=== PATIENT | male | born 1975 | race Hispanic/Latino ===

== ENCOUNTER 2018-05-08 20:27 | Emergency (ER) | payer BC ==
--- NOTE | 2018-05-08 21:27 | RAD REPORT ---
EXAM DESCRIPTION: Rosie [facility]ous [facility]05/08/2018 9:17 pm CLINICAL HISTORY: left leg pain COMPARISON: November 2016 FINDINGS: Left common femoral, superficial femoral, popliteal and posterior tibial veins are compre ssible and demonstrate augmentation. Doppler demonstrates good flow. IMPRESSION: No evidence of deep venous thrombosis involving the left lower extremity.
[2018-05-08 21:46] LABS: Absolute Lymphocytes (CBC) 3.1 K/uL (0.7-4.9); Absolute Monocytes 0.9 K/uL (0.1-1.3); Absolute Neutrophil 7.8 K/uL (1.8-8.0); Basophils % 0.9 % (0-1.3); Eosinophils % 2.8 % (0-4.4); Hematocrit 45.1 % (39.6-49.0); MCH 30.7 pg (27.0-35.0); MCV 90.1 fL (80-100); MPV 11.3 fL (7.6-11.3); Monocytes % 7.2 % (3.3-12.3); RBC Red Blood Cell Count 5.01 M/uL (4.33-5.43)
--- NOTE | 2018-05-08 21:51 | RAD REPORT ---
EXAM DESCRIPTION: Kiko Cochran Left05/08/2018 9:40 pm CLINICAL HISTORY: Left leg pain FINDINGS: No fracture is seen. No bony destructive lesion is noted
[2018-05-08 22:02] LABS: ALT/SGPT 28 U/L (12-78); AST/SGOT 13 U/L (15-37); Albumin 3.8 g/dL (3.4-5.0); Alkaline Phosphatase 120 U/L (45-117); BUN Blood Urea Nitrogen 9 mg/dL (7-18); Bicarbonate 30 mmol/L (21-32); Bilirubin Total 0.4 mg/dL (0.2-1.0); Glucose Level 295 mg/dL (74-106); Potassium 3.7 mmol/L (3.5-5.1); Protein, Total 7.5 g/dL (6.4-8.2); Sodium Level 136 mmol/L (136-145)
[2018-05-08] MEDS ORDERED: HYDROCODONE/APAP 10/325 TAB ONE (22:02)
[2018-05-08] MEDS ORDERED: DOXYCYCLINE 100 MG CAP PO ONE (23:47)
--- NOTE | 2018-05-08 23:49 | ER ---
Nurse's Notes [facility] Name: Juan Kee Age: 43 yrs Sex: Male : 1975 Arrival Date: 05/08/2018 Time: 20:37 Bed 5 Private MD: Diagnosis: Cellulitis of left lower limb Presentation: 05/08 20:43 Presenting complaint: Patient states: left lower leg redness, hot to touch X4 days. pt ak1 seen at urgent care Tuesday given cream and bactium. Transition of care: patient was not received from another setting of care. Onset of symptoms is unknown. Risk Assessment: Do you want to hurt yourself or someone else? Patient reports no desire to harm self or others. Initial Sepsis Screen: Does the patient meet any 2 criteria? No. Patient's initial sepsis screen is negative. Does the patient have a suspected source of infection? No. Patient's initial sepsis screen is negative. Care prior to arrival: None. 20:43 Method Of Arrival: Ambulatory ak1 20:43 Acuity: ЕКАТЕРИНА 3 ak1 Historical: - Allergies: 20:45 No Known Allergies; ak1 - Home Meds: 20:45 Benicar HCT 40-25 mg oral tab 1 tab once daily [Active]; ak1 - PMHx: 20:45 Hypertension; ak1 - PSHx: 20:45 Appendectomy; ak1 - Immunization history:: Adult Immunizations unknown. - Social history:: Smoking status: Patient uses tobacco products, smokes one-half pack cigarettes per day. - Ebola Screening: : No symptoms or risks identified at this time. Screenin:20 Abuse screen: Denies threats or abuse. Denies injuries from another. Nutritional lp1 screening: No deficits noted. Tuberculosis screening: No symptoms or risk factors identified. Fall Risk None identified. Assessment: 21:00 General: Appears in no apparent distress. Behavior is calm, cooperative, appropriate lp1 for age. Pain: Complains of pain in left flannery Pain currently is 5 out of 10 on a pain scale. Aggravated by increased activity. Neuro: Level of Consciousness is awake, alert, obeys commands. Cardiovascular: Patient's skin is warm and dry. Respiratory: Respiratory effort is even, unlabored. GI: No signs and/or symptoms were reported involving the gastrointestinal system. : No signs and/or symptoms were reported regarding the genitourinary system. EENT: No signs and/or symptoms were reported regarding the EENT system. Derm: redness, hot to touch to left flannery. Musculoskeletal: Circulation, motion, and sensation intact. 22:00 Reassessment: Patient appears in no apparent distress at this time. Patient and/or lp1 family updated on plan of care and expected duration. Pain level reassessed. Patient is alert, oriented x 3, equal unlabored respirations, skin warm/dry/pink. Patient aware of waiting for lab results. 23:00 Reassessment: Patient appears in no apparent distress at this time. No changes from lp1 previously documented assessment. Patient and/or family updated on plan of care and expected duration. Pain level reassessed. 23:48 Reassessment: Patient appears in no apparent distress at this time. No changes from lp1 previously documented assessment. Patient and/or family updated on plan of care and expected duration. Pain level reassessed. Aware of discharge. Vital Signs: 20:45 BP 163 / 107; Pulse 89; Resp 18; Temp 98.6; Pulse Ox 98% on R/A; Weight 102.06 kg (R); ak1 Height 5 ft. 11 in. (180.34 cm); Pain 5/10; 22:05 BP 140 / 92; Pulse 87; Resp 18; Pulse Ox 98% on R/A; lp1 23:30 BP 137 / 89; Pulse 70; Resp 18; Pulse Ox 98% on R/A; lp1 20:45 Body Mass Index 31.38 (102.06 kg, 180.34 cm) ak1 ED Course: 20:37 Patient arrived in ED. es 20:44 Triage completed. ak1 20:45 Arm band placed on Patient placed in an exam room, Patient notified of wait time. ak1 20:48 Jimmy Meyers NP is PHCP. pm1 20:48 Kendrick Thomas MD is Attending Physician. pm1 21:17 Extremity Venous Uni Ltd US In Process Unspecified. EDMS 21:35 Initial lab(s) drawn, by me, sent to lab. Inserted saline lock: 20 gauge in right cc forearm, using aseptic technique. Blood collected. 21:36 Tib Fib Left XRAY In Process Unspecified. EDMS 21:37 X-ray completed. Portable x-ray completed in exam room. Patient tolerated procedure sw well. 22:18 Miranda Santos, RN is Primary Nurse. lp1 22:20 Patient has correct armband on for positive identification. Bed in low position. Pulse lp1 ox on. NIBP on. 23:49 No provider procedures requiring assistance completed. IV discontinued, No lp1 redness/swelling at site. Pressure dressing applied. Administered Medications: 22:05 Drug: [place] 10 mg-325 mg 1 tabs Route: PO; lp1 23:45 Follow up: Response: Pain is decreased lp1 23:45 Drug: Doxycycline 100 mg Route: PO; lp1 05/09 00:02 Follow up: Response: Medication administered at discharge. lp1 Outcome: 05/08 23:49 Discharge ordered by . pm1 05/09 00:02 Discharged to home ambulatory, with significant other. lp1 Condition: good Discharge instructions given to patient, Instructed on discharge instructions, follow up and referral plans. medication usage, Demonstrated understanding of instructions, follow-up care, medications, Prescriptions given X 2. 00:02 Patient left the ED. lp1 Signatures: Dispatcher [employer] Catherine García Chelsea Miranda Santos, RN RN lp1 Melva Wright RN RN ak1 Yue Diane Patrick, SACHI [employer] AND G[employer] DRAFTER pm1
--- NOTE | 2018-05-08 23:49 | EDPHYS ---
Physician Documentation [facility] Name: Juan Kee Age: 43 yrs Sex: Male : 1975 Arrival Date: 05/08/2018 Time: 20:37 Bed 5 Private MD: ED Physician Kendrick Thomas HPI: 05/08 21:00 This 43 yrs old Male presents to ER via Ambulatory with complaints of LEG pm1 INFECTION. 21:00 The patient presents with cellulitis of the left flannery. Description: erythematous. pm1 Onset: The symptoms/episode began/occurred 2 day(s) ago. Possible cause(s): unknown. Associated signs and symptoms: Pertinent negatives: fever. Modifying factors: the symptoms are alleviated by nothing, the symptoms are aggravated by touching. Severity of symptoms: in the emergency department the symptoms are actually worse. The patient has not experienced similar symptoms in the past. The patient has been recently seen at an urgent care, 2 days ago and prescribed bactrim. Historical: - Allergies: 20:45 No Known Allergies; ak1 - Home Meds: 20:45 Benicar HCT 40-25 mg oral tab 1 tab once daily [Active]; ak1 - PMHx: 20:45 Hypertension; ak1 - PSHx: 20:45 Appendectomy; ak1 - Immunization history:: Adult Immunizations unknown. - Social history:: Smoking status: Patient uses tobacco products, smokes one-half pack cigarettes per day. - Ebola Screening: : No symptoms or risks identified at this time. ROS: 21:00 Constitutional: Negative for fever, chills, and weight loss, Eyes: Negative for injury, pm1 pain, redness, and discharge, ENT: Negative for injury, pain, and discharge, Neck: Negative for injury, pain, and swelling, Cardiovascular: Negative for chest pain, palpitations, and edema, Respiratory: Negative for shortness of breath, cough, wheezing, and pleuritic chest pain, Abdomen/GI: Negative for abdominal pain, nausea, vomiting, diarrhea, and constipation, Back: Negative for injury and pain, MS/Extremity: Negative for injury and deformity. 21:00 Neuro: Negative for headache, weakness, numbness, tingling, and seizure. 21:00 Skin: Positive for cellulitis, of the left flannery. Exam: 21:00 Constitutional: This is a well developed, well nourished patient who is awake, alert, pm1 and in no acute distress. Head/Face: Normocephalic, atraumatic. Neck: Trachea midline, no thyromegaly or masses palpated, and no cervical lymphadenopathy. Supple, full range of motion without nuchal rigidity, or vertebral point tenderness. No Meningismus. Chest/axilla: Normal chest wall appearance and motion. Nontender with no deformity. No lesions are appreciated. Cardiovascular: Regular rate and rhythm with a normal S1 and S2. No gallops, murmurs, or rubs. Normal PMI, no JVD. No pulse deficits. Respiratory: Lungs have equal breath sounds bilaterally, clear to auscultation and percussion. No rales, rhonchi or wheezes noted. No increased work of breathing, no retractions or nasal flaring. Abdomen/GI: Soft, non-tender, with normal bowel sounds. No distension or tympany. No guarding or rebound. No evidence of tenderness throughout. Back: No spinal tenderness. No costovertebral tenderness. Full range of motion. 21:00 MS/ Extremity: Pulses equal, no cyanosis. Neurovascular intact. Full, normal range of motion. 21:00 Skin: Appearance: normal except for affected area, cellulitis, that is mild, on the left flannery. 21:00 Neuro: Orientation: is normal, Motor: moves all fours. Vital Signs: 20:45 BP 163 / 107; Pulse 89; Resp 18; Temp 98.6; Pulse Ox 98% on R/A; Weight 102.06 kg (R); ak1 Height 5 ft. 11 in. (180.34 cm); Pain 5/10; 22:05 BP 140 / 92; Pulse 87; Resp 18; Pulse Ox 98% on R/A; lp1 23:30 BP 137 / 89; Pulse 70; Resp 18; Pulse Ox 98% on R/A; lp1 20:45 Body Mass Index 31.38 (102.06 kg, 180.34 cm) ak1 MDM: 20:50 Patient medically screened. pm1 23:48 Data reviewed: vital signs. Data interpreted: Pulse oximetry: on room air is 98 %. pm1 Interpretation: normal. Counseling: I had a detailed discussion with the patient and/or guardian regarding: the historical points, exam findings, and any diagnostic results supporting the discharge/admit diagnosis, lab results, radiology results, the need for outpatient follow up, to return to the emergency department if symptoms worsen or persist or if there are any questions or concerns that arise at home. 05/09 00:00 ED course: Bactrim only taken for 2 days. too early for antibiotic therapy failure. pm1 Will give patient doxycycline for double coverage and will continue trial outpatient therapy for cellulitis. 05/08 20:54 Order name: CBC with Diff; Complete Time: 22:06 pm1 05/08 20:54 Order name: CMP; Complete Time: 22:06 pm1 05/08 20:54 Order name: Tib Fib Left XRAY; Complete Time: 22:06 pm1 05/08 20:54 Order name: Extremity Venous Uni Ltd US; Complete Time: 22:06 pm1 05/08 20:54 Order name: Procalcitonin; Complete Time: 22:51 pm1 05/08 20:54 Order name: IV Saline Lock; Complete Time: 21:39 pm1 Administered Medications: 05/08 22:05 Drug: [place] 10 mg-325 mg 1 tabs Route: PO; lp1 23:45 Follow up: Response: Pain is decreased lp1 23:45 Drug: Doxycycline 100 mg Route: PO; lp1 05/09 00:02 Follow up: Response: Medication administered at discharge. lp1 Disposition: :18 Co-signature as Attending Physician, Kendrick Thomas MD. Disposition: 05/08/18 23:49 Discharged to Home. Impression: Cellulitis of left lower limb. - Condition is Stable. - Discharge Instructions: Cellulitis, Adult. - Prescriptions for Doxycycline Hyclate 100 mg Oral Tablet - take 1 tablet by ORAL route every 12 hours; 20 tablet. Tylenol- Codeine #3 300-30 mg Oral Tablet - take 2 tablets by ORAL route every 6 hours As needed; 20 tablet. - Work release form, Medication Reconciliation Form, Thank You Letter, Antibiotic Education, Prescription Opioid Use form. - Follow up: Emergency Department; When: As needed; Reason: Worsening of condition. Follow up: Private Physician; When: 2 - 3 days; Reason: Recheck today's complaints, Continuance of care, Re-evaluation by your physician. - Problem is new. - Symptoms have improved. Signatures: Dispatcher [facility] Miranda Carrion, RN RN lp1 Melva Wright RN RN ak1 Jimmy Meyers, HULL SORTER HULL SORTER pm1 Kendrick Thomas MD MD gs Corrections: (The following items were deleted from the chart) 00:02 05/08 23:49 05/08/2018 23:49 Discharged to Home. Impression: Cellulitis of left lower lp1 limb. Condition is Stable. Forms are Medication Reconciliation Form, Thank You Letter, Antibiotic Education, Prescription Opioid Use. Follow up: Emergency Department; When: As needed; Reason: Worsening of condition. Follow up: Private Physician; When: 2 - 3 days; Reason: Recheck today's complaints, Continuance of care, Re-evaluation by your physician. Problem is new. Symptoms have improved. pm1
[2018-05-09 00:25] VITALS: TEMP 98.6; O2SAT 98
[2018-05-09 00:27] VITALS: BP 137/89
== END 2018-05-09 00:02 | disposition home or self-care (01) ==
LOC: ER 20:27
DX: L03.116 Cellulitis of left lower limb (principal); I10 Essential (primary) hypertension; F17.210 Nicotine dependence, cigarettes, uncomplicated
CPT/HCPCS: 36415; 80053; 84145; 85025; 93971; 99284

== ENCOUNTER 2019-02-23 07:17 | Emergency (ER) | payer BC ==
--- OUTSIDE RECORDS SUMMARY | 2019-02-23 07:19 | XMS REPORT ---
:1975 [facility] Address [address] [place] [address] Dr. Cabral [address] [place] [id number] Care Team Providers Name Role Phone Unavailable Unavailable Unavailable Problems This patient has no known problems. Allergies, Adverse Reactions, Alerts This patient has no known allergies or adverse reactions. Medications This patient has no known medications.
[2019-02-23] MEDS ORDERED: hydrOXYzine HCl 25 MG TAB ONE (08:07)
[2019-02-23] MEDS ORDERED: LORAZEPAM 1 MG TABLET ONE (09:08)
--- NOTE | 2019-02-23 09:22 | ER ---
Nurse's Notes [facility] Name: Juan Kee Age: 44 yrs Sex: Male : 1975 Arrival Date: 02/23/2019 Time: 07:21 Bed 19 Private MD: Ender Sommers E Diagnosis: Acute stress reaction Presentation: 02/23 07:40 Transition of care: patient was not received from another setting of care. Onset of iw symptoms was February 23, 2019. Risk Assessment: Do you want to hurt yourself or someone else? Patient reports no desire to harm self or others. Initial Sepsis Screen: Does the patient meet any 2 criteria? No. Patient's initial sepsis screen is negative. Does the patient have a suspected source of infection? No. Patient's initial sepsis screen is negative. Care prior to arrival: None. 07:40 Method Of Arrival: Ambulatory iw 07:40 Acuity: ЕКАТЕРИНА 3 iw 07:41 Presenting complaint: Patient states: woke up with anxiety and pain shooting throughout iw his body. Historical: - Allergies: 07:40 No Known Allergies; iw - Home Meds: 07:40 Benicar HCT 40-25 mg Oral tab 1 tab once daily [Active]; iw - PMHx: 07:40 Hypertension; iw - PSHx: 07:40 Appendectomy; iw - Immunization history:: Adult Immunizations up to date. - Ebola Screening: : Patient negative for fever greater than or equal to 101.5 degrees Fahrenheit, and additional compatible Ebola Virus Disease symptoms Patient denies exposure to infectious person Patient denies travel to an Ebola-affected area in the 21 days before illness onset No symptoms or risks identified at this time. - Social history:: Smoking status: Patient/guardian denies using tobacco. Screenin:55 Abuse screen: Denies threats or abuse. Nutritional screening: No deficits noted. em Tuberculosis screening: No symptoms or risk factors identified. Fall Risk None identified. Assessment: 07:55 General: Appears in no apparent distress. comfortable, Behavior is calm, cooperative, em Denies fever. General: Reports increased anxiety over the past 2 weeks, reports high level stress at work, minimal sleep. Pain: Denies pain. Neuro: Level of Consciousness is awake, alert, obeys commands, Oriented to person, place, time, situation. Cardiovascular: Capillary refill < 3 seconds Patient's skin is warm and dry. Respiratory: Airway is patent Respiratory effort is even, unlabored, Respiratory pattern is regular, symmetrical. Derm: Skin is intact, is healthy with good turgor, Skin is pink, warm \T\ dry. Musculoskeletal: Capillary refill < 3 seconds, Range of motion: intact in all extremities. 08:12 Reassessment: I agree with previous assessment. hb 08:40 Reassessment: reports medication has not helped, provider notified, new medication em orders received. 09:32 Reassessment: Patient appears in no apparent distress at this time. Patient and/or em family updated on plan of care and expected duration. Pain level reassessed. Patient is alert, oriented x 3, equal unlabored respirations, skin warm/dry/pink. Patient states feeling better. Patient states symptoms have improved. Vital Signs: 07:39 BP 156 / 110; Pulse 88; Resp 16; Temp 98.0(TE); Pulse Ox 100% on R/A; Weight 99.79 kg; iw Height 5 ft. 11 in. (180.34 cm); Pain 7/10; 09:24 BP 164 / 116; Pulse 91; Resp 18; Pulse Ox 99% on R/A; em 07:39 Body Mass Index 30.68 (99.79 kg, 180.34 cm) iw 09:24 reports he has not taken his morning medications, provider notified em ED Course: 07:21 Patient arrived in ED. mr 07:21 Ender Sommers MD is Private Physician. mr 07:36 Darien Herbert LVN is Primary Nurse. em 07:37 Jimmy Meyers NP is PHCP. pm1 07:37 Gian Segura MD is Attending Physician. pm1 07:39 Arm band placed on. iw 07:40 Triage completed. iw 07:55 Patient has correct armband on for positive identification. Bed in low position. Call em light in reach. Adult w/ patient. Pulse ox on. NIBP on. 09:21 Ender Sommers MD is Referral Physician. pm1 09:33 No provider procedures requiring assistance completed. Patient did not have IV access em during this emergency room visit. Administered Medications: 08:00 Drug: hydrOXYzine 50 mg Route: PO; em 08:40 Follow up: Response: No adverse reaction; Anxiety unchanged em 08:58 Drug: Ativan 1 mg Route: PO; em 09:35 Follow up: Response: No adverse reaction; Anxiety decreased em Outcome: 09:21 Discharge ordered by . pm1 09:33 Discharged to home ambulatory, with family. em 09:33 Condition: good 09:33 Discharge instructions given to patient, family, Instructed on discharge instructions, follow up and referral plans. medication usage, Demonstrated understanding of instructions, follow-up care, medications, Prescriptions given X 1. 09:35 Patient left the ED. em Signatures: Ce Muniz Edgar, RAW SCALES OPERATOR RAW SCALES OPERATOR em Estephanie Bradley, DANIEL SANCHEZ iw Jimmy Meyers, MANUFACTURING ENGINEERING TECHNICIAN MANUFACTURING ENGINEERING TECHNICIAN pm1 Liliane Hodge RN RN hb
--- NOTE | 2019-02-23 09:22 | EDPHYS ---
Physician Documentation [facility] Name: Juan Kee Age: 44 yrs Sex: Male : 1975 Arrival Date: 02/23/2019 Time: 07:21 Bed 19 Private MD: Ender Sommers E ED Physician Gian Segura HPI: 02/23 09:20 This 44 yrs old Male presents to ER via Ambulatory with complaints of Anxiety. pm1 09:20 Onset: The symptoms/episode began/occurred 1 month(s) ago. Associated signs and pm1 symptoms: Pertinent positives: Depression and insomnia, Pertinent negatives: abdominal pain, chest pain, cough, dysuria, fever, headache, shortness of breath, vomiting, wheezing. Modifying factors: The patient symptoms are alleviated by nothing, the patient symptoms are aggravated by Stress: Patient reports having feelings of lack of bonding with his . Need to follow up with oncology due to high RBC counts in blood. Low testosterone levels. The patient has not experienced similar symptoms in the past. The patient has been recently seen by a physician: the patient's primary care provider, Dr. Sommers. Historical: - Allergies: 07:40 No Known Allergies; iw - Home Meds: 07:40 Benicar HCT 40-25 mg Oral tab 1 tab once daily [Active]; iw - PMHx: 07:40 Hypertension; iw - PSHx: 07:40 Appendectomy; iw - Immunization history:: Adult Immunizations up to date. - Ebola Screening: : Patient negative for fever greater than or equal to 101.5 degrees Fahrenheit, and additional compatible Ebola Virus Disease symptoms Patient denies exposure to infectious person Patient denies travel to an Ebola-affected area in the 21 days before illness onset No symptoms or risks identified at this time. - Social history:: Smoking status: Patient/guardian denies using tobacco. ROS: 09:20 Constitutional: Negative for fever, chills, and weight loss, Eyes: Negative for injury, pm1 pain, redness, and discharge, ENT: Negative for injury, pain, and discharge, Neck: Negative for injury, pain, and swelling, Cardiovascular: Negative for chest pain, palpitations, and edema, Respiratory: Negative for shortness of breath, cough, wheezing, and pleuritic chest pain, Abdomen/GI: Negative for abdominal pain, nausea, vomiting, diarrhea, and constipation, Back: Negative for injury and pain, : Negative for injury, bleeding, discharge, and swelling, MS/Extremity: Negative for injury and deformity, Skin: Negative for injury, rash, and discoloration, Neuro: Negative for headache, weakness, numbness, tingling, and seizure. 09:20 Psych: Positive for anxiety, depression, insomnia. Exam: 09:20 Constitutional: This is a well developed, well nourished patient who is awake, alert, pm1 and in no acute distress. Head/Face: Normocephalic, atraumatic. Eyes: Pupils equal round and reactive to light, extra-ocular motions intact. Lids and lashes normal. Conjunctiva and sclera are non-icteric and not injected. Cornea within normal limits. Periorbital areas with no swelling, redness, or edema. ENT: Nares patent. No nasal discharge, no septal abnormalities noted. Tympanic membranes are normal and external auditory canals are clear. Oropharynx with no redness, swelling, or masses, exudates, or evidence of obstruction, uvula midline. Mucous membranes moist. Neck: Trachea midline, no thyromegaly or masses palpated, and no cervical lymphadenopathy. Supple, full range of motion without nuchal rigidity, or vertebral point tenderness. No Meningismus. Chest/axilla: Normal chest wall appearance and motion. Nontender with no deformity. No lesions are appreciated. Cardiovascular: Regular rate and rhythm with a normal S1 and S2. No gallops, murmurs, or rubs. Normal PMI, no JVD. No pulse deficits. Respiratory: Lungs have equal breath sounds bilaterally, clear to auscultation and percussion. No rales, rhonchi or wheezes noted. No increased work of breathing, no retractions or nasal flaring. Abdomen/GI: Soft, non-tender, with normal bowel sounds. No distension or tympany. No guarding or rebound. No evidence of tenderness throughout. Back: No spinal tenderness. No costovertebral tenderness. Full range of motion. Skin: Warm, dry with normal turgor. Normal color with no rashes, no lesions, and no evidence of cellulitis. MS/ Extremity: Pulses equal, no cyanosis. Neurovascular intact. Full, normal range of motion. 09:20 Neuro: Orientation: is normal, Motor: is normal, moves all fours, strength is normal, strength is 5/5 in all extremities. 09:20 Psych: Behavior/mood is anxious, Affect is animated, Oriented to person, place, time, Patient has no thoughts/intents to harm self or others. Delusions/hallucinations are not present. Vital Signs: 07:39 BP 156 / 110; Pulse 88; Resp 16; Temp 98.0(TE); Pulse Ox 100% on R/A; Weight 99.79 kg; iw Height 5 ft. 11 in. (180.34 cm); Pain 7/10; 09:24 BP 164 / 116; Pulse 91; Resp 18; Pulse Ox 99% on R/A; em 07:39 Body Mass Index 30.68 (99.79 kg, 180.34 cm) iw 09:24 reports he has not taken his morning medications, provider notified em MDM: 07:37 Patient medically screened. pm1 09:11 Data reviewed: vital signs. Data interpreted: Pulse oximetry: on room air is 100 %. pm1 Interpretation: normal. 09:20 Counseling: I had a detailed discussion with the patient and/or guardian regarding: the pm1 historical points, exam findings, and any diagnostic results supporting the discharge/admit diagnosis, the need for outpatient follow up, to return to the emergency department if symptoms worsen or persist or if there are any questions or concerns that arise at home. Administered Medications: 08:00 Drug: hydrOXYzine 50 mg Route: PO; em 08:40 Follow up: Response: No adverse reaction; Anxiety unchanged em 08:58 Drug: Ativan 1 mg Route: PO; em 09:35 Follow up: Response: No adverse reaction; Anxiety decreased em Disposition: 15:02 Co-signature as Attending Physician, Gian Segura MD I agree with the assessment and horacio plan of care. Disposition: 02/23/19 09:21 Discharged to Home. Impression: Acute stress reaction. - Condition is Stable. - Discharge Instructions: Panic Attacks, Stress and Stress Management. - Prescriptions for Ativan 0.5 mg Oral Tablet - take 1 tablet by ORAL route every 8 hours As needed; 10 tablet. - Work release form, Medication Reconciliation Form, Thank You Letter, Antibiotic Education, Prescription Opioid Use form. - Follow up: Emergency Department; When: As needed; Reason: Worsening of condition. Follow up: Ender Sommers MD; When: 2 - 3 days; Reason: Recheck today's complaints, Continuance of care, Re-evaluation by your physician. - Problem is new. - Symptoms have improved. Signatures: Gian Segura MD MD cha Munoz, Edgar, GAS PLUMBING INSPECTOR GAS PLUMBING INSPECTOR Estephanie Mo RN RN Jimmy Messer NP TAPE LIBRARIAN pm1 Corrections: (The following items were deleted from the chart) 09:35 09:21 02/23/2019 09:21 Discharged to Home. Impression: Acute stress reaction. Condition em is Stable. Forms are Work release form, Medication Reconciliation Form, Thank You Letter, Antibiotic Education, Prescription Opioid Use. Follow up: Emergency Department; When: As needed; Reason: Worsening of condition. Follow up: Ender Sommers; When: 2 - 3 days; Reason: Recheck today's complaints, Continuance of care, Re-evaluation by your physician. Problem is new. Symptoms have improved. pm1
[2019-02-23 09:40] VITALS: TEMP 98
[2019-02-23 09:41] VITALS: BP 164/116; O2SAT 99
== END 2019-02-23 09:35 | disposition home or self-care (01) ==
LOC: ER 07:17
DX: F43.0 Acute stress reaction (principal); F32.9 Major depressive disorder, single episode, unspecified; I10 Essential (primary) hypertension
CPT/HCPCS: 99283

== ENCOUNTER 2019-03-12 15:43 | Emergency (ER) | payer BC ==
--- OUTSIDE RECORDS SUMMARY | 2019-03-12 15:45 | XMS REPORT ---
:1975 [facility] Address [address] [place] [address] Dr. Cabral [address] [place] [id number] Care Team Providers Name Role Phone Unavailable Unavailable Unavailable Problems This patient has no known problems. Allergies, Adverse Reactions, Alerts This patient has no known allergies or adverse reactions. Medications This patient has no known medications.
[2019-03-12 16:16] LABS: Absolute Lymphocytes (CBC) 3.6 K/uL (0.7-4.9); Absolute Monocytes 0.9 K/uL (0.1-1.3); Absolute Neutrophil 9.4 K/uL (1.8-8.0); Basophils % 0.9 % (0-1.3); Eosinophils % 1.1 % (0-4.4); Hematocrit 49.4 % (39.6-49.0); Lymphocytes % 25.6 % (15.3-44.8); MPV 11.2 fL (7.6-11.3); Monocytes % 6.2 % (3.3-12.3); RBC Red Blood Cell Count 5.55 M/uL (4.33-5.43)
[2019-03-12 16:18] LABS: Protime INR 1.03
[2019-03-12 16:23] LABS: Urine Blood NEGATIVE (NEG); Urine Glucose 2+ (NEG); Urine Protein NEGATIVE (NEG)
[2019-03-12] MEDS ORDERED: NA CHLORIDE 0.9% 2,000 ML ONE (16:30)
[2019-03-12 16:35] LABS: ALT/SGPT 48 U/L (12-78); AST/SGOT 17 U/L (15-37); Albumin 3.3 g/dL (3.4-5.0); Alkaline Phosphatase 102 U/L (45-117); BUN Blood Urea Nitrogen 16 mg/dL (7-18); Bicarbonate 25 mmol/L (21-32); Bilirubin Direct 0.2 mg/dL (0-0.2); Bilirubin Total 0.7 mg/dL (0.2-1.0); Glucose Level 377 mg/dL (74-106); Magnesium 1.8 mg/dL (1.8-2.4); Potassium 3.8 mmol/L (3.5-5.1); Protein, Total 6.7 g/dL (6.4-8.2); Sodium Level 135 mmol/L (136-145); Troponin (Emerg Dept Use Only) < 0.02 ng/mL (0.0-0.045)
[2019-03-12 16:43] LABS: NT PRO-BNP < 5 pg/mL (<125)
--- NOTE | 2019-03-12 16:50 | RAD REPORT ---
EXAM DESCRIPTION: RAD - Chest Single View - 03/12/2019 4:34 pm CLINICAL HISTORY: Chest pain COMPARISON: None. TECHNIQUE: AP portable chest image was obtained 1629 hours . FINDINGS: Lungs are clear. Heart and vasculature are normal. No measurable pleural effusion and no p neumothorax. No acute bony abnormality seen. No acute aortic findings suspected. IMPRESSION: No acute cardiopulmonary process.
[2019-03-12] MEDS ORDERED: INSULIN -REGULAR HUMAN 50 UNIT/0.5 ML ML ONE ×2 (16:59→17:25)
[2019-03-12] MEDS ORDERED: NITROGLYCERIN 0.4 MG/TAB SL ONE (17:00)
[2019-03-12 17:03] LABS: CKMB Creatine Kinase MB 1.9 ng/mL (0.3-3.6)
--- NOTE | 2019-03-12 17:19 | ER ---
Nurse's Notes [facility] Name: Juan Kee Age: 44 yrs Sex: Male : 1975 Arrival Date: 03/12/2019 Time: 15:44 Bed 5 Private MD: Diagnosis: Heat exhaustion, unspecified;Type 2 diabetes mellitus;Volume depletion;Volume depletion, unspecified Presentation: 03/12 15:46 Presenting complaint: EMS states: Severe muscle cramping of extremities and hands after hb working outside for several. hours today. Transition of care: patient was not received from another setting of care. Onset of symptoms was March 12, 2019. Risk Assessment: Do you want to hurt yourself or someone else? Patient reports no desire to harm self or others. Initial Sepsis Screen: Does the patient meet any 2 criteria? No. Patient's initial sepsis screen is negative. Does the patient have a suspected source of infection? No. Patient's initial sepsis screen is negative. Care prior to arrival: IV initiated. 18 GA, in the right antecubital area, Glucose check: 121. 15:46 Method Of Arrival: EMS: [facility] hb 15:46 Acuity: ЕКАТЕРИНА 3 hb Historical: - Allergies: 15:54 No Known Drug Allergies; hb - Home Meds: 15:54 Benicar HCT 40-25 mg Oral tab 1 tab once daily [Active]; hb - PMHx: 15:54 Hypertension; hb - PSHx: 15:54 Appendectomy; hb - Immunization history:: Adult Immunizations up to date. - Social history:: Smoking status: Patient/guardian denies using tobacco. - Ebola Screening: : No symptoms or risks identified at this time. - Family history:: not pertinent. Screenin:55 Abuse screen: Denies threats or abuse. Denies injuries from another. Nutritional hb screening: No deficits noted. Tuberculosis screening: No symptoms or risk factors identified. Fall Risk None identified. Assessment: 16:24 General: Appears in no apparent distress. Behavior is calm, cooperative. Pain: Pain hb currently is 7 out of 10 on a pain scale. Neuro: Level of Consciousness is awake, alert, obeys commands, Oriented to person, place, time, situation. Cardiovascular: Heart tones S1 S2 present Capillary refill < 3 seconds Patient's skin is warm and dry. Respiratory: Airway is patent Respiratory effort is even, unlabored, Respiratory pattern is regular, symmetrical. GI: No signs and/or symptoms were reported involving the gastrointestinal system. : No signs and/or symptoms were reported regarding the genitourinary system. EENT: No signs and/or symptoms were reported regarding the EENT system. Derm: Skin is intact, is healthy with good turgor, Skin is pink, warm \T\ dry. normal. Musculoskeletal: Reports cramping of extremities, bilateral hands and feet. 17:00 Reassessment: Patient appears in no apparent distress at this time. Patient and/or hb family updated on plan of care and expected duration. Pain level reassessed. Patient is alert, oriented x 3, equal unlabored respirations, skin warm/dry/pink. Discharge pending completion of IV medication. 18:01 Reassessment: Patient appears in no apparent distress at this time. Patient and/or hb family updated on plan of care and expected duration. Pain level reassessed. Patient is alert, oriented x 3, equal unlabored respirations, skin warm/dry/pink. Vital Signs: 15:47 BP 107 / 77; Pulse 102; Resp 16; Temp 97.9; Pulse Ox 100% on R/A; Weight 83.91 kg; hb Height 5 ft. 11 in. (180.34 cm); Pain 5/10; 17:59 BP 133 / 77; Pulse 87; Resp 15; Pulse Ox 98% on R/A; hb 15:47 Body Mass Index 25.80 (83.91 kg, 180.34 cm) hb ED Course: 15:44 Patient arrived in ED. hb 15:44 Gian Segura MD is Attending Physician. horacio 15:47 Triage completed. hb 15:54 Arm band placed on. hb 16:05 Maintain EMS IV. Dressing intact. Good blood return noted. Site clean \T\ dry. Gauge \T\ hb site: 18g RIGHT AC. 16:21 EKG done, by ED staff, reviewed by Gian Segura MD. [email or web address] 16:23 Patient has correct armband on for positive identification. Bed in low position. Call hb light in reach. Side rails up X 1. 16:27 Liliane Hodge, DANIEL is Primary Nurse. hb 16:35 XRAY Chest (1 view) In Process Unspecified. EDMS 17:19 Ender Sommers MD is Referral Physician. horacio 18:40 No provider procedures requiring assistance completed. IV discontinued, intact, hb bleeding controlled, No redness/swelling at site. Pressure dressing applied. Administered Medications: 16:29 Drug: NS 0.9% 1000 ml Route: IV; Rate: 1 bolus; Site: right antecubital; hb 17:27 Follow up: Response: No adverse reaction; IV Status: Completed infusion; IV Intake: hb 1000ml 16:29 Drug: NS 0.9% 1000 ml Route: IV; Rate: 1 bolus; Site: right antecubital; hb 17:26 Follow up: Response: No adverse reaction; IV Status: Completed infusion; IV Intake: hb 1000ml 17:16 Drug: Insulin Regular Human 10 units {Co-Signature: bp (Pilo Martin RN).} Route: IVP; hb Site: right upper arm; 18:37 Follow up: Response: No adverse reaction; Blood sugar is lowered hb 17:21 Drug: morphine 4 mg Route: IVP; Site: right antecubital; hb 18:15 Follow up: Response: No adverse reaction; Pain is decreased hb 17:21 Drug: Zofran 4 mg Route: IVP; Site: right antecubital; hb 18:15 Follow up: Response: No adverse reaction hb 17:37 Drug: Magnesium Sulfate 1 grams Route: IVPB; Infused Over: 1 hrs; Site: right hb antecubital; 18:30 Follow up: Response: No adverse reaction; IV Status: Completed infusion; IV Intake: 50mlhb 17:37 Drug: Potassium Effervescent Tablet 50 mEq Route: PO; hb 18:15 Follow up: Response: No adverse reaction hb 17:37 Drug: Aspirin 162 mg Route: PO; hb 18:30 Follow up: Response: No adverse reaction hb Intake: 17:26 IV: 1000ml; Total: 1000ml. hb 17:27 IV: 1000ml; Total: 2000ml. hb 18:30 IV: 50ml; Total: 2050ml. hb Outcome: 17:19 Discharge ordered by . horacio 18:40 Discharged to home ambulatory, with significant other. hb 18:40 Condition: stable 18:40 Discharge instructions given to patient, significant other, Instructed on discharge instructions, follow up and referral plans. medication usage, Demonstrated understanding of instructions, follow-up care, medications, Prescriptions given X 2. 18:41 Patient left the ED. hb Signatures: Dispatcher [employer] EDPorfirio Theodore [email or web address] Gian Segura MD MD cha Baxter, Heather, RN RN hb Pilo Martin RN bp Corrections: (The following items were deleted from the chart) 18:01 17:15 Reassessment: Patient appears in no apparent distress at this time. Patient hb and/or family updated on plan of care and expected duration. Pain level reassessed. Patient is alert, oriented x 3, equal unlabored respirations, skin warm/dry/pink. hb 18:01 17:15 Reassessment: Patient appears in no apparent distress at this time. Patient hb and/or family updated on plan of care and expected duration. Pain level reassessed. Patient is alert, oriented x 3, equal unlabored respirations, skin warm/dry/pink. Discharge pending completion of IV medication hb
--- NOTE | 2019-03-12 17:20 | EDPHYS ---
Physician Documentation [facility] Name: Juan Kee Age: 44 yrs Sex: Male : 1975 Arrival Date: 03/12/2019 Time: 15:44 Bed 5 Private MD: ED Physician Gian Segura HPI: 03/12 16:44 This 44 yrs old Male presents to ER via EMS with complaints of Muscle Cramps. horacio 16:44 The patient presents with decreased range of motion, pain, spasm. The complaints affect horacio the right leg and left leg. Context: resulted from an unknown cause, the patient can fully bear weight, the patient is able to ambulate. Onset: The symptoms/episode began/occurred just prior to arrival, today. Modifying factors: The symptoms are alleviated by nothing. the symptoms are aggravated by nothing. Associated signs and symptoms: The patient has no apparent associated signs or symptoms. Treatment prior to arrival includes: no previous treatment. Severity of symptoms: At their worst the symptoms were mild moderate in the emergency department the symptoms are unchanged. Historical: - Allergies: 15:54 No Known Drug Allergies; hb - Home Meds: 15:54 Benicar HCT 40-25 mg Oral tab 1 tab once daily [Active]; hb - PMHx: 15:54 Hypertension; hb - PSHx: 15:54 Appendectomy; hb - Immunization history:: Adult Immunizations up to date. - Social history:: Smoking status: Patient/guardian denies using tobacco. - Ebola Screening: : No symptoms or risks identified at this time. - Family history:: not pertinent. ROS: 16:44 Constitutional: Negative for fever, chills, and weight loss, Eyes: Negative for injury, horacio pain, redness, and discharge, ENT: Negative for injury, pain, and discharge, Neck: Negative for injury, pain, and swelling, Cardiovascular: Negative for chest pain, palpitations, and edema, Respiratory: Negative for shortness of breath, cough, wheezing, and pleuritic chest pain, Abdomen/GI: Negative for abdominal pain, nausea, vomiting, diarrhea, and constipation, Back: Negative for injury and pain, : Negative for injury, bleeding, discharge, and swelling, Skin: Negative for injury, rash, and discoloration, Neuro: Negative for headache, weakness, numbness, tingling, and seizure, Psych: Negative for depression, anxiety, suicide ideation, homicidal ideation, and hallucinations, Allergy/Immunology: Negative for hives, rash, and allergies, Endocrine: Negative for neck swelling, polydipsia, polyuria, polyphagia, and marked weight changes, Hematologic/Lymphatic: Negative for swollen nodes, abnormal bleeding, and unusual bruising. 16:44 MS/extremity: Positive for decreased range of motion, pain, tenderness, of the right leg and left leg. Exam: 16:44 Constitutional: This is a well developed, well nourished patient who is awake, alert, horacio and in no acute distress. Head/Face: Normocephalic, atraumatic. Eyes: Pupils equal round and reactive to light, extra-ocular motions intact. Lids and lashes normal. Conjunctiva and sclera are non-icteric and not injected. Cornea within normal limits. Periorbital areas with no swelling, redness, or edema. ENT: Nares patent. No nasal discharge, no septal abnormalities noted. Tympanic membranes are normal and external auditory canals are clear. Oropharynx with no redness, swelling, or masses, exudates, or evidence of obstruction, uvula midline. Mucous membranes moist. Neck: Trachea midline, no thyromegaly or masses palpated, and no cervical lymphadenopathy. Supple, full range of motion without nuchal rigidity, or vertebral point tenderness. No Meningismus. Chest/axilla: Normal chest wall appearance and motion. Nontender with no deformity. No lesions are appreciated. Cardiovascular: Regular rate and rhythm with a normal S1 and S2. No gallops, murmurs, or rubs. Normal PMI, no JVD. No pulse deficits. Respiratory: Lungs have equal breath sounds bilaterally, clear to auscultation and percussion. No rales, rhonchi or wheezes noted. No increased work of breathing, no retractions or nasal flaring. Abdomen/GI: Soft, non-tender, with normal bowel sounds. No distension or tympany. No guarding or rebound. No evidence of tenderness throughout. Back: No spinal tenderness. No costovertebral tenderness. Full range of motion. Male : Normal genitalia with no discharge or lesions. Skin: Warm, dry with normal turgor. Normal color with no rashes, no lesions, and no evidence of cellulitis. Neuro: Awake and alert, GCS 15, oriented to person, place, time, and situation. Cranial nerves II-XII grossly intact. Motor strength 5/5 in all extremities. Sensory grossly intact. Cerebellar exam normal. Normal gait. Psych: Awake, alert, with orientation to person, place and time. Behavior, mood, and affect are within normal limits. 16:44 Musculoskeletal/extremity: ROM: full active range of motion, full passive range of motion, Pulses: Sensation intact. Compartment Syndrome exam of affected extremity: is normal. no pain, no numbness, no tingling, no sensation deficit, no palor, no weak pulses, DVT Exam: no swelling, pain, tenderness. Vital Signs: 15:47 BP 107 / 77; Pulse 102; Resp 16; Temp 97.9; Pulse Ox 100% on R/A; Weight 83.91 kg; hb Height 5 ft. 11 in. (180.34 cm); Pain 5/10; 17:59 BP 133 / 77; Pulse 87; Resp 15; Pulse Ox 98% on R/A; hb 15:47 Body Mass Index 25.80 (83.91 kg, 180.34 cm) MDM: 15:44 Patient medically screened. [facility] 16:48 Data reviewed: vital signs, nurses notes, lab test result(s), EKG, radiologic studies, [facility] CT scan. 03/12 16:00 Order name: Basic Metabolic Panel; Complete Time: 16:51 hb 03/12 16:00 Order name: CBC with Diff; Complete Time: 16:44 03/12 16:00 Order name: LFT's; Complete Time: 16:51 03/12 16:00 Order name: Magnesium; Complete Time: 16:51 03/12 16:00 Order name: NT PRO-BNP; Complete Time: 16:51 03/12 16:00 Order name: PT-INR; Complete Time: 16:44 03/12 16:00 Order name: Troponin (emerg Dept Use Only); Complete Time: 16:51 03/12 16:00 Order name: XRAY Chest (1 view); Complete Time: 17:17 hb 03/12 16:17 Order name: Urine Dipstick--Ancillary (enter results); Complete Time: 16:44 bd 03/12 16:43 Order name: CK; Complete Time: 17:17 horacio 03/12 16:43 Order name: Ckmb; Complete Time: 17:17 [facility] 03/12 18:23 Order name: Glucose, Ancillary Testing EDMS 03/12 16:00 Order name: EKG; Complete Time: 16:03 03/12 16:00 Order name: Cardiac monitoring; Complete Time: 16:32 hb 03/12 16:00 Order name: EKG - Nurse/Tech; Complete Time: 16:32 hb 03/12 16:00 Order name: IV Saline Lock; Complete Time: 16:32 03/12 16:00 Order name: Labs collected and sent; Complete Time: 16:32 hb 03/12 16:00 Order name: O2 Per Protocol; Complete Time: 16:33 03/12 16:00 Order name: O2 Sat Monitoring; Complete Time: 16:58 03/12 16:12 Order name: Urine Dipstick-Ancillary (obtain specimen); Complete Time: 16:31 [facility] 03/12 17:22 Order name: Blood Glucose Level; Complete Time: 18:21 [facility] Administered Medications: 16:29 Drug: NS 0.9% 1000 ml Route: IV; Rate: 1 bolus; Site: right antecubital; hb 17:27 Follow up: Response: No adverse reaction; IV Status: Completed infusion; IV Intake: hb 1000ml 16:29 Drug: NS 0.9% 1000 ml Route: IV; Rate: 1 bolus; Site: right antecubital; hb 17:26 Follow up: Response: No adverse reaction; IV Status: Completed infusion; IV Intake: hb 1000ml 17:16 Drug: Insulin Regular Human 10 units {Co-Signature: bp (Pilo Martin RN).} Route: IVP; hb Site: right upper arm; 18:37 Follow up: Response: No adverse reaction; Blood sugar is lowered hb 17:21 Drug: morphine 4 mg Route: IVP; Site: right antecubital; hb 18:15 Follow up: Response: No adverse reaction; Pain is decreased hb 17:21 Drug: Zofran 4 mg Route: IVP; Site: right antecubital; hb 18:15 Follow up: Response: No adverse reaction hb 17:37 Drug: Magnesium Sulfate 1 grams Route: IVPB; Infused Over: 1 hrs; Site: right hb antecubital; 18:30 Follow up: Response: No adverse reaction; IV Status: Completed infusion; IV Intake: 50mlhb 17:37 Drug: Potassium Effervescent Tablet 50 mEq Route: PO; hb 18:15 Follow up: Response: No adverse reaction hb 17:37 Drug: Aspirin 162 mg Route: PO; hb 18:30 Follow up: Response: No adverse reaction hb Disposition: 03/12/19 17:19 Discharged to Home. Impression: Heat exhaustion, unspecified, Type 2 diabetes mellitus, Volume depletion, Volume depletion, unspecified. - Condition is Stable. - Discharge Instructions: Dehydration, Adult, Type 2 Diabetes Mellitus, Diagnosis, Adult, Heat Exhaustion Information, Dehydration, Adult, [id number], Aspirin and Your Heart, Type 2 Diabetes Mellitus, Diagnosis, Adult, Zadi-qd-Cigk, Type 2 Diabetes Mellitus, Self Care, Adult. - Prescriptions for Zofran 4 mg Oral Tablet - take 1 tablet by ORAL route every 12 hours As needed; 14 tablet. Tylenol- Codeine #3 300-30 mg Oral Tablet - take 2 tablets by ORAL route every 6 hours As needed; 20 tablet. - Medication Reconciliation Form, Thank You Letter, Antibiotic Education, Prescription Opioid Use, Work release form form. - Follow up: Private Physician; When: 2 - 3 days; Reason: Recheck today's complaints, Continuance of care, Re-evaluation by your physician. Follow up: Ender Sommers MD; When: 2 - 3 days; Reason: Recheck today's complaints, Re-evaluation by your physician. - Problem is new. - Symptoms have improved. Signatures: Dispatcher [employer] Gian Matthews MD MD cha Baxter, Heather, RN RN hb Pilo Martin RN bp Corrections: (The following items were deleted from the chart) 18:41 17:19 03/12/2019 17:19 Discharged to Home. Impression: Heat exhaustion, unspecified; hb Type 2 diabetes mellitus; Volume depletion; Volume depletion, unspecified. Condition is Stable. Discharge Instructions: Dehydration, Adult, Type 2 Diabetes Mellitus, Diagnosis, Adult, Heat Exhaustion Information, Dehydration, Adult, Wkyh-sq-Vwuw, Type 2 Diabetes Mellitus, Diagnosis, Adult, Wlvy-tg-Wytk, Type 2 Diabetes Mellitus, Self Care, Adult. Prescriptions for Zofran 4 mg Oral Tablet - take 1 tablet by ORAL route every 12 hours As needed; 14 tablet, Tylenol-Codeine #3 300-30 mg Oral Tablet - take 2 tablets by ORAL route every 6 hours As needed; 20 tablet. and Forms are Medication Reconciliation Form, Thank You Letter, Antibiotic Education, Prescription Opioid Use. Follow up: Private Physician; When: 2 - 3 days; Reason: Recheck today's complaints, Continuance of care, Re-evaluation by your physician. Follow up: Ender Sommers; When: 2 - 3 days; Reason: Recheck today's complaints, Re-evaluation by your physician. Problem is new. Symptoms have improved. horacio
[2019-03-12] MEDS ORDERED: ONDANSETRON 4 MG/2 ML VIAL ONE (17:32)
[2019-03-12] MEDS ORDERED: MORPHINE 4 MG/ML SYR ONE (17:32)
[2019-03-12] MEDS ORDERED: POTASSIUM 25 MEQ EFFERV TAB ONE (17:45)
[2019-03-12] MEDS ORDERED: MAGNESIUM SULFATE 1 gm IVPB 1 GM/100 ML BAG IV ONE (17:45)
[2019-03-12] MEDS ORDERED: ASPIRIN 81 MG CHEWABLE TABLET ONE (17:45)
[2019-03-12 19:26] VITALS: TEMP 97.9
[2019-03-12 19:28] VITALS: BP 133/77; O2SAT 98
--- NOTE | 2019-03-13 07:58 | EKG ---
Test Date: 2019-03-12 Test Time: 16:18:33 Salvage Supervisor: ERNESTINE MEASUREMENT RESULTS: Intervals: Rate: 91 RI: 180 QRSD: 94 QT: 342 QTc: 420 [place]: P: 59 RI: 180 QRS: 12 T: 40 INTERPRETIVE STATEMENTS: Normal sinus rhythm Normal ECG Compared to ECG 11/23/2010 15:13:01 Incomplete right bundle-branch block no longer present Electronically Signed On 03-13-19 07:57:06 CDT by Pawel Midldeton
== END 2019-03-12 18:41 | disposition home or self-care (01) ==
LOC: ER 15:43
DX: T67.5XXA Heat exhaustion, unspecified, initial encounter (principal); E86.9 Volume depletion, unspecified; E11.9 Type 2 diabetes mellitus without complications; I10 Essential (primary) hypertension
CPT/HCPCS: 36415; 71045; 80048; 80076; 81003; 82550; 82553; 82962; 83735; 83880; 84484; 85025; 85610; 93005; 99284; J2405; J3475; J7030

== ENCOUNTER 2019-05-30 10:43 | Emergency (ER) | payer BC ==
--- OUTSIDE RECORDS SUMMARY | 2019-05-30 10:45 | XMS REPORT ---
:1975 [facility] Address [address] [place] [address] Dr. Cabral [address] [place] [id number] Care Team Providers Name Role Phone Unavailable Unavailable Unavailable Problems This patient has no known problems. Allergies, Adverse Reactions, Alerts This patient has no known allergies or adverse reactions. Medications This patient has no known medications.
[2019-05-30] MEDS ORDERED: NA CHLORIDE 0.9% 1,000 ML ONE (11:03)
--- NOTE | 2019-05-30 11:15 | RAD REPORT ---
EXAM DESCRIPTION: Ang Single View05/30/2019 11:03 am CLINICAL HISTORY: Abdominal pain COMPARISON: February 2019 FINDINGS: The lungs appear clear of acute infiltrate. The heart is normal size. Right paratracheal region is more prominent than on the prior exam IMPRESSION: Mildly prominent right paratracheal region may represent a combination of technique and confluence of vessels and mediastinal fat. As lymphadenopathy can have this appearance it is recommen ded that the patient have PA and lateral chest series for further evaluation
[2019-05-30 11:16] LABS: Absolute Lymphocytes (CBC) 1.8 K/uL (0.7-4.9); Hematocrit 41.2 % (39.6-49.0); Lymphocytes % 26.6 % (15.3-44.8); MPV 11.2 fL (7.6-11.3); Protime INR 0.97; RBC Red Blood Cell Count 4.37 M/uL (4.33-5.43)
[2019-05-30 11:35] LABS: ALT/SGPT 37 U/L (12-78); AST/SGOT 11 U/L (15-37); Albumin 3.7 g/dL (3.4-5.0); Alkaline Phosphatase 93 U/L (45-117); BUN Blood Urea Nitrogen 9 mg/dL (7-18); Bicarbonate 26 mmol/L (21-32); Bilirubin Direct 0.1 mg/dL (0-0.2); Bilirubin Total 0.5 mg/dL (0.2-1.0); Creatine Phosphokinase 77 U/L (39-308); Glucose Level 307 mg/dL (74-106); Magnesium 2.1 mg/dL (1.8-2.4); NT PRO-BNP 21 pg/mL (<125); Potassium 3.3 mmol/L (3.5-5.1); Protein, Total 7.5 g/dL (6.4-8.2); Sodium Level 137 mmol/L (136-145); Troponin (Emerg Dept Use Only) < 0.02 ng/mL (0.0-0.045)
--- NOTE | 2019-05-30 11:41 | RAD REPORT ---
EXAM DESCRIPTION: CT - Head Brain Wo Cont - 05/30/2019 11:25 am CLINICAL HISTORY: Dizziness COMPARISON: None TECHNIQUE: Computed axial tomography of the head was obtained. IV contrast was not requested. All CT scans are performed using dose optimization technique as appropriate and may include automated exposure control or mA/KV adjustment according to patient size. FINDINGS: An intracranial bleed is not seen . The ventricles are normal in caliber. No extra-axial fluid collection is noted. Mild to moderate low-density areas within periventricular, deep and subcortical white matter likely r epresent ischemic changes secondary to small vessel disease. Mild ethmoid sinusitis. Fluid within mastoids is not noted IMPRESSION: No acute intracranial abnormality is seen. If patient's symptoms persist MRI of the bra in would be recommended.
--- NOTE | 2019-05-30 12:40 | ER ---
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 Transition of care: bp patient was not received from another setting of care. Onset of symptoms is unknown. Risk Assessment: Do you want to hurt yourself or someone else? Patient reports no desire to harm self or others. Initial Sepsis Screen: Does the patient meet any 2 criteria? No. Patient's initial sepsis screen is negative. Does the patient have a suspected source of infection? No. Patient's initial sepsis screen is negative. Care prior to arrival: Medication(s) given: Normal saline infusion, 1000 mL, IV initiated. 18 GA, in the right forearm, Glucose check: 336. 10:47 Method Of Arrival: EMS: [facility] bp 10:47 Acuity: ЕКАТЕРИНА 3 bp Triage Assessment: 10:48 General: Appears in no apparent distress. comfortable, Behavior is calm, cooperative, bp appropriate for age. Pain: Denies pain. EENT: No deficits noted. Neuro: No deficits noted. Cardiovascular: No deficits noted. Respiratory: No deficits noted. GI: Reports nausea, vomiting. : No signs and/or symptoms were reported regarding the genitourinary system. Derm: No deficits noted. Musculoskeletal: No deficits noted. Historical: - Allergies: 10:48 No Known Allergies; bp - Home Meds: 10:48 Benicar HCT 40-25 mg Oral tab 1 tab once daily [Active]; bp - PMHx: 10:48 Hypertension; bp - Immunization history:: Adult Immunizations up to date. - Social history:: Smoking status: Patient/guardian denies using tobacco. - Ebola Screening: : No symptoms or risks identified at this time. Screenin:50 Abuse screen: Denies threats or abuse. Denies injuries from another. Nutritional bp screening: No deficits noted. Tuberculosis screening: No symptoms or risk factors identified. Fall Risk None identified. Assessment: 10:50 General: SEE TRIAGE NOTE. bp 11:49 Reassessment: ALL CURRENT ORDERS COMPLETED, RESULTS PENDING. bp 13:11 Reassessment: PT D/C HOME AMBULATORY WITH FAMILY, DX WITH DEHYDRATION. bp Vital Signs: 10:46 BP 117 / 84; Pulse 73; Resp 22; Temp 97.3; Pulse Ox 100% ; Weight 97.52 kg; Height 5 bp ft. 11 in. (180.34 cm); 11:48 BP 129 / 84; Pulse 72; Resp 18; Pulse Ox 100% ; bp 13:13 BP 125 / 86; Pulse 75; Resp 16; Temp 97; Pulse Ox 100% ; bp 10:46 Body Mass Index 29.99 (97.52 kg, 180.34 cm) bp ED Course: 10:45 Patient arrived in ED. bp 10:46 Derrick Crenshaw PA is PHCP. jmm 10:46 Laureano Pompa MD is Attending Physician. jmm 10:48 Triage completed. bp 10:49 Arm band placed on. bp 10:50 Patient has correct armband on for positive identification. Bed in low position. Call bp light in reach. Side rails up X2. Adult w/ patient. 10:50 Maintain EMS IV. Dressing intact. Good blood return noted. Site clean \T\ dry. Gauge \T\ bp site: 18 GAUGE R FA. 10:51 Pilo Martin, RN is Primary Nurse. bp 11:03 X-ray completed. Portable x-ray completed in exam room. Patient tolerated procedure sw well. 11:03 XRAY Chest (1 view) In Process Unspecified. EDMS 11:27 CT Head Brain wo Cont In Process Unspecified. EDMS 13:12 No provider procedures requiring assistance completed. IV discontinued, intact, bp bleeding controlled, No redness/swelling at site. Pressure dressing applied. Administered Medications: 11:00 Drug: NS 0.9% 1000 ml Route: IV; Rate: 1 bolus; Site: right forearm; bp 13:12 Follow up: IV Status: Completed infusion; IV Intake: 1000ml bp Intake: 13:12 IV: 1000ml; Total: 1000ml. bp Outcome: 12:39 Discharge ordered by . jmm 13:14 Discharged to home ambulatory, with family. bp 13:14 Condition: stable 13:14 Discharge instructions given to patient, Instructed on discharge instructions, follow up and referral plans. Demonstrated understanding of instructions, follow-up care. 13:14 Patient left the ED. bp Signatures: Dispatcher [employer] EDMS Derrick Crenshaw PA PA jmm Warren, Shannon sw Peltier, Brian, RN RN bp Corrections: (The following items were deleted from the chart) 10:49 10:46 97.52 kg; Height 5 ft. 11 in.; BMI: 29.9; bp bp
--- NOTE | 2019-05-30 12:41 | EDPHYS ---
Physician Documentation [facility] Name: Juan Kee Age: 44 yrs Sex: Male : 1975 Arrival Date: 05/30/2019 Time: 10:45 Bed 20 Private MD: ED Physician Laureano Pompa HPI: 05/30 10:50 This 44 yrs old Male presents to ER via EMS with complaints of Heat Exposure. jmm 10:50 The patient presents with sense of spinning. Onset: The symptoms/episode began/occurred jmm acutely, just prior to arrival. Modifying factors: The symptoms are alleviated by holding head still, the symptoms are aggravated by movement of head. This is a 44 year old male with a history of htn that presents to the ED with complaints of dizziness beginning after working outdoors. Patient describes the dizziness as a sense of movement worsened with moving his head. Denies chest pain, denies shortness of breath. Historical: - Allergies: 10:48 No Known Allergies; bp - Home Meds: 10:48 Benicar HCT 40-25 mg Oral tab 1 tab once daily [Active]; bp - PMHx: 10:48 Hypertension; bp - Immunization history:: Adult Immunizations up to date. - Social history:: Smoking status: Patient/guardian denies using tobacco. - Ebola Screening: : No symptoms or risks identified at this time. ROS: 10:50 Cardiovascular: Negative for chest pain, palpitations, and edema, Respiratory: Negative jmm for shortness of breath, cough, wheezing, and pleuritic chest pain. 10:50 Abdomen/GI: Negative for abdominal pain, nausea, vomiting, diarrhea, and constipation. 10:50 Constitutional: Positive for fatigue. 10:50 Neuro: Positive for dizziness. 10:50 All other systems are negative. Exam: 10:50 Constitutional: This is a well developed, well nourished patient who is awake, alert, jmm and in no acute distress. Head/Face: atraumatic. Eyes: EOMI, no conjunctival erythema appreciated ENT: Moist Mucus Membranes Neck: Trachea midline, Supple Chest/axilla: Normal chest wall appearance and motion. 10:50 Respiratory: Normal respirations, no respiratory distress appreciated Abdomen/GI: Non distended, soft Skin: General appearance color normal MS/ Extremity: Moves all extremities, no obvious deformities appreciated, no edema noted to the lower extremities 10:50 Cardiovascular: Rate: normal, Rhythm: regular, Pulses: no pulse deficits are appreciated. 10:50 Neuro: Orientation: is normal, Mentation: is normal, Memory: is normal, Cerebellar function: normal finger to nose testing, Motor: is normal. 10:50 Psych: Behavior/mood is pleasant, cooperative. 10:58 ECG was reviewed by the Attending Physician. [facility] Vital Signs: 10:46 BP 117 / 84; Pulse 73; Resp 22; Temp 97.3; Pulse Ox 100% ; Weight 97.52 kg; Height 5 bp ft. 11 in. (180.34 cm); 11:48 BP 129 / 84; Pulse 72; Resp 18; Pulse Ox 100% ; bp 13:13 BP 125 / 86; Pulse 75; Resp 16; Temp 97; Pulse Ox 100% ; bp 10:46 Body Mass Index 29.99 (97.52 kg, 180.34 cm) bp MDM: 10:50 Patient medically screened. [facility] 12:37 Data reviewed: vital signs, nurses notes. Counseling: I had a detailed discussion with [facility] the patient and/or guardian regarding: the historical points, exam findings, and any diagnostic results supporting the discharge/admit diagnosis, lab results, radiology results, the need for outpatient follow up, to return to the emergency department if symptoms worsen or persist or if there are any questions or concerns that arise at home. ED course: Normal cerebellar exam, i do not suspect central vertigo. patient is able to ambulate without difficulty. I discussed the need to follow up with pcp and the patient was also given strict return precautions. patient understood and agrees with the plan of care. . 05/30 10:50 Order name: Basic Metabolic Panel; Complete Time: 11:45 [facility] 05/30 10:50 Order name: CBC with Diff; Complete Time: 11:21 [facility] 05/30 10:50 Order name: LFT's; Complete Time: 11:45 [facility] 05/30 10:50 Order name: Magnesium; Complete Time: 11:45 [facility] 05/30 10:50 Order name: NT PRO-BNP; Complete Time: 11:45 [facility] 05/30 10:50 Order name: PT-INR; Complete Time: 11:45 [facility] 05/30 10:50 Order name: Troponin (emerg Dept Use Only); Complete Time: 11:45 05/30 10:50 Order name: XRAY Chest (1 view); Complete Time: 11:21 05/30 10:50 Order name: EKG; Complete Time: :05/30 10:50 Order name: Cardiac monitoring; Complete Time: 11:00 05/30 10:50 Order name: EKG - Nurse/Tech; Complete Time: :05/30 10:50 Order name: CPK; Complete Time: 11: [facility] 05/30 10:50 Order name: CT Head Brain wo Cont; Complete Time: 11:45 05/30 10:50 Order name: IV Saline Lock; Complete Time: :05/30 10:50 Order name: Labs collected and sent; Complete Time: 11:00 05/30 10:50 Order name: O2 Per Protocol; Complete Time: 10:53 05/30 10:50 Order name: O2 Sat Monitoring; Complete Time: 10:52 jmm EC:58 Rate is 70 beats/min. Rhythm is regular. QRS [place] is Normal. [place] interval is normal. QRS jmm interval is normal. QT interval is normal. No Q waves. T waves are Normal. No ST changes noted. Reviewed by me. Administered Medications: 11:00 Drug: NS 0.9% 1000 ml Route: IV; Rate: 1 bolus; Site: right forearm; bp 13:12 Follow up: IV Status: Completed infusion; IV Intake: 1000ml bp Disposition: 05/30/19 12:39 Discharged to Home. Impression: Dehydration, Benign paroxysmal vertigo. - Condition is Stable. - Discharge Instructions: Benign Positional Vertigo, Dehydration, Adult, Near-Syncope. - Medication Reconciliation Form, Thank You Letter, Antibiotic Education, Prescription Opioid Use form. - Follow up: Private Physician; When: 2 - 3 days; Reason: Recheck today's complaints, Continuance of care, Re-evaluation by your physician. Signatures: Dispatcher [employer] Derrick Kilgore PA PA jmm Peltier, Brian, RN RN bp Corrections: (The following items were deleted from the chart) 13:14 12:39 05/30/2019 12:39 Discharged to Home. Impression: Dehydration; Benign paroxysmal bp vertigo. Condition is Stable. Forms are Medication Reconciliation Form, Thank You Letter, Antibiotic Education, Prescription Opioid Use. Follow up: Private Physician; When: 2 - 3 days; Reason: Recheck today's complaints, Continuance of care, Re-evaluation by your physician. lucia
[2019-05-30 13:29] VITALS: O2SAT 100
[2019-05-30 13:31] VITALS: BP 125/86; TEMP 97
--- NOTE | 2019-05-30 16:07 | EKG ---
Test Date: 2019-05-30 Test Time: 10:55:41 Director Of Home Economics: YU MEASUREMENT RESULTS: Intervals: Rate: 70 GA: 186 QRSD: 108 QT: 402 QTc: 434 [place]: P: 40 GA: 186 QRS: 2 T: 36 INTERPRETIVE STATEMENTS: Normal sinus rhythm Normal ECG Compared to ECG 03/12/2019 16:18:33 No significant changes Electronically Signed On 05-30-19 16:06:09 CDT by Kareem Mcconnell
== END 2019-05-30 13:14 | disposition home or self-care (01) ==
LOC: ER 10:43
DX: E86.0 Dehydration (principal); H81.10 Benign paroxysmal vertigo, unspecified ear; I10 Essential (primary) hypertension
CPT/HCPCS: 93005; 85025; 80048; 36415; 83735; 82550; 85610; 80076; 84484; 83880; 70450; 71045; J7030